=== PATIENT | male | born 1940 | race Caucasian/White ===

== ENCOUNTER 2019-12-13 09:09 | Inpatient (IN) | payer MEDICARE ==
[~2019-12-13] VITALS: Ht 177.8 cm; Wt 64.5 kg
[~2019-12-13 09:09] MED LIST: APIX5TAB PO; ASPI81TA59 PO; CYAN500T52 PO; DILT120C99 PO; DILT240C2 PO; DILT240C66 PO; DOCU-109 PO; HYDR-2765 PO; IPRA3AMP29 NEB; LEVO125T5 PO; LEVO75TA5 PO; METR45CR2 TP; MYCO250C44 PO; MYCO500T3 PO; NAPR220C4 PO; OMEG1CAP6 PO; PANT40TA77 PO; PIRF267C2 PO; PRED-220 PO; PRED5TAB PO; TAMS0.4C97 PO
[2019-12-13 09:20] VITALS: BP 100/57
[2019-12-13] MEDS ORDERED: predniSONE 5 MG TABLET PO PRN (09:45)
--- NOTE | 2019-12-13 10:26 | HP ---
ADMIT DATE: 12/13/2019 CHIEF COMPLAINT AND HISTORY OF PRESENT ILLNESS: This 79-year-old white male is well known to me from followup in the office. The patient admitted at this point in time with several days of increasing weakness, anorexia and a couple of falls. was unable to get him up and around the house safely and the patient is admitted to better figure out what the acute processes are causing his rapid decompensation. PAST MEDICAL HISTORY: Remarkable for interstitial lung disease, atrial fibrillation, benign prostatic hypertrophy, rosacea, osteoarthritis, peripheral neuropathy, hypothyroidism, early dementia, prior thoracic spine back surgery for myelopathy, tonsillectomy and vasectomy. MEDICATIONS: Brought with the patient, listed on the computer and have been addressed. ALLERGIES: He has no known drug allergies. SOCIAL HISTORY: Nonsmoker, nondrinker, does not abuse drugs. , lives at home with his . Has worked and still does a couple of days a week of trying to do work. FAMILY HISTORY: Noncontributory. REVIEW OF SYSTEMS: As mentioned above. PHYSICAL EXAMINATION: GENERAL: He is a well-developed, well-nourished white male, who appears in no acute distress. VITAL SIGNS: Stable. He is afebrile. HEAD, EYES, EARS, NOSE AND THROAT: Remarkable for some bruising about the head area. NECK: Supple without adenopathy or thyromegaly. CHEST: Clear to auscultation and percussion. HEART: Irregularly irregular with rate in the 70s. ABDOMEN: Soft, nontender, without hepatosplenomegaly or masses. EXTREMITIES: Without cyanosis, clubbing or edema. NEUROLOGICAL: Nonfocal. LABORATORY DATA: The patient just had laboratory testing in my office here a week ago, had a hemoglobin of 10.8, but slightly decreased red cell indices, and did have a history of GI bleeding. TSH was slightly elevated at 6.68. Otherwise, comprehensive metabolic panel was normal. IMPRESSION: Falls, weakness, anorexia of uncertain etiology. PLAN: The patient has been admitted. Therapy will be asked to see him. Labs will be checked, and the patient will be monitored, managed and treated appropriately. SATURNINO ARIAS MD DR: SEAN/alexa JOB#: [id number] / [id number]
[2019-12-13] MEDS: MYCOPHENOLATE MOFETIL 250 MG CAPSULE. PO SCH ×2 (10:46→21:17)
[2019-12-13] MEDS: LEVOTHYROXINE 125 MCG TABLET PO SCH (10:46)
[2019-12-13] MEDS: TAMSULOSIN 0.4 MG CAP.ER.24H. PO SCH (10:46)
[2019-12-13] MEDS: CYANOCOBALAMIN (VITAMIN B-12) 1,000 MCG TABLET. PO SCH (10:47)
--- NOTE | 2019-12-13 10:50 | RAD ---
EXAM: AP View of the chest DATE: 12/13/2019 9:35 AM INDICATION: Shortness of breath COMPARISON: 03/25/2019 FINDINGS/ IMPRESSION: Cardiac mediastinal silhouette is stable to 03/25/2019. Bilateral interstitial prominence particularly in the upper lungs and peripheral lower lungs are also grossly stable without definite superimposed lobar consolidation. Retrocardiac density may represent hiatal hernia. Trace pleural effusions or pleural thickening. No definite pneumothorax. Prominent loops of small and large bowel are seen in the upper abdomen. Electronically signed by: Sergio Vasquez MD (12/13/2019 10:47 AM) [email or web address]
[2019-12-13 11:00] VITALS: BP 110/62
[2019-12-13 12:27] LABS: BASO % 1 % (0-3); EOS % 0 % (0-3); HEMATOCRIT 36.2 % (39.0-53.0); HEMOGLOBIN 11.5 g/dL (13.0-17.5); LYMPH # 0.2 x10^3/uL (1.0-4.8); LYMPH % 8 % (24-48); MEAN CORPUSCULAR HEMOGLOBIN 24 pg (25-35); MEAN CORPUSCULAR HGB CONC 32 g/dL (31-37); MEAN CORPUSCULAR VOLUME 75 fL (79-100); MONO # 0.3 x10^3/uL (0.0-1.1); MONO % 8 % (0-9); NEUT # 2.6 x10^3/uL (1.8-7.7); NEUT % 82 % (31-73); PLATELET COUNT 108 x10^3/uL (140-400); RED BLOOD COUNT 4.85 x10^6/uL (4.30-5.70); RED CELL DISTRIBUTION WIDTH 17.6 % (11.5-14.5); WHITE BLOOD COUNT 3.1 x10^3/uL (4.0-11.0)
[2019-12-13 13:00] LABS: ALBUMIN 3.2 g/dL (3.4-5.0); ALBUMIN/GLOBULIN RATIO 0.8 (1.0-1.7); CALCIUM 8.8 mg/dL (8.5-10.1); CREATININE 0.7 mg/dL (0.7-1.3); GFR 108.5; POTASSIUM 4.5 mmol/L (3.5-5.1)
[2019-12-13 14:18] LABS: % ATYL 2 % (0-0); % BANDS 10 % (0-9); % BASOS 1 % (0-3); % LYMPHS 4 % (24-48); % MONOS 9 % (0-10); % SEGS 74 % (35-66); NUCLEATED RBC 1; PLT ESTIMATE DECREASED (ADEQUATE)
[2019-12-13 14:23] LABS: ANISOCYTOSIS SLIGHT; BIZZARE CELLS FEW; HYPOCHROMIA SLIGHT; OVALOCYTES FEW
[2019-12-13 14:49] LABS: BILIRUBIN,URINE SMALL (NEG); CLARITY,URINE CLEAR; COLOR,URINE AMBER; NITRITE,URINE NEGATIVE (NEG); PH,URINE 5.5 (<5.0-8.0); PROTEIN,URINE NEGATIVE (NEG-TRACE)
[2019-12-13 15:00] VITALS: BP 85/45
[2019-12-13 15:00] LABS: BACTERIA,URINE 0 /HPF (0-FEW); RBC,URINE 0 /HPF (0-2); SQUAMOUS EPITHELIAL CELL,UR OCC /LPF; WBC,URINE 0 /HPF (0-4)
[2019-12-13 15:45] VITALS: BP 98/56
[2019-12-13] MEDS ORDERED: IOHEXOL 300 MG/ML 100ML VIAL. PO ONE (16:00)
[2019-12-13] MEDS ORDERED: CONTRAST GIVEN. MC PRN (16:00)
[2019-12-13] MEDS ORDERED: IOHEXOL 240 MG/ML 50ML VIAL. PO ONE (16:00)
--- NOTE | 2019-12-13 18:09 | RAD ---
Exam: CT abdomen and pelvis with contrast INDICATION: Dilated bowel TECHNIQUE: Sequential axial images through the abdomen and pelvis obtained following the administration of 75 mL of Omni 300 IV contrast. Sagittal and coronal reformatted images were reconstructed from the axial data and reviewed. Comparisons: Chest x-ray same day FINDINGS: Heart size is normal. No pericardial effusion. Peripheral reticular opacities with associated cystic change is noted at the lung bases. No pleural effusion. Liver, spleen, pancreas, gallbladder and adrenals are unremarkable. Kidneys demonstrate symmetric enhancement. No perinephric inflammation or hydronephrosis. No renal or ureteral calculi are identified. Bladder is partially distended and not well evaluated. Prostate is not enlarged. Large and small bowel are unremarkable. There is mild gaseous distention of the stomach without evidence for obstruction. No free intra-abdominal air or fluid. No obstruction. Abdominal aorta has a normal course and caliber. Abdominal vasculature is patent. No enlarged intra-abdominal lymph nodes are identified. No suspicious osseous lesions or acute fractures. IMPRESSION: 1. Gas distention of the stomach without evidence of obstruction. 2. No acute process identified within the abdomen or pelvis. Exposure: One or more of the following in the visualized dose reduction techniques were utilized for this examination: 1. Automated exposure control 2. Adjustment of the MA and/or KV according to patient size 3. Use of iterative of reconstructive technique Electronically signed by: Epi Ayala MD (12/13/2019 6:06 PM) [id number]
[2019-12-13 19:00] VITALS: BP 104/77
[2019-12-13 23:00] VITALS: BP 117/63
[2019-12-14 03:00] VITALS: BP 119/74
[2019-12-14 05:16] LABS: BASO % 1 % (0-3); EOS % 1 % (0-3); HEMATOCRIT 33.4 % (39.0-53.0); HEMOGLOBIN 10.6 g/dL (13.0-17.5); LYMPH # 0.3 x10^3/uL (1.0-4.8); LYMPH % 13 % (24-48); MEAN CORPUSCULAR HEMOGLOBIN 24 pg (25-35); MEAN CORPUSCULAR HGB CONC 32 g/dL (31-37); MEAN CORPUSCULAR VOLUME 75 fL (79-100); MONO # 0.2 x10^3/uL (0.0-1.1); MONO % 10 % (0-9); NEUT # 1.7 x10^3/uL (1.8-7.7); NEUT % 75 % (31-73); PLATELET COUNT 96 x10^3/uL (140-400); RED BLOOD COUNT 4.43 x10^6/uL (4.30-5.70); WHITE BLOOD COUNT 2.2 x10^3/uL (4.0-11.0)
[2019-12-14 07:59] VITALS: BP 110/72
[2019-12-14] MEDS: MYCOPHENOLATE MOFETIL 250 MG CAPSULE. PO SCH ×2 (09:48→21:15)
[2019-12-14] MEDS: CYANOCOBALAMIN (VITAMIN B-12) 1,000 MCG TABLET. PO SCH (09:49)
[2019-12-14] MEDS: TAMSULOSIN 0.4 MG CAP.ER.24H. PO SCH (09:49)
[2019-12-14] MEDS: LEVOTHYROXINE 125 MCG TABLET PO SCH (09:49)
[2019-12-14 11:59] VITALS: BP 104/67
--- NOTE | 2019-12-14 12:25 | PDOC ---
Infectious Disease Note Vital Sign Vital Signs Vital Signs Date Time Temp Pulse Resp B/P (MAP) Pulse Ox O2 Delivery O2 Flow Rate FiO2 12/14/19 09:49 98 110/72 12/14/19 08:00 Room Air 12/14/19 07:59 97.6 20 92 97.6 Labs Lab Laboratory Tests Test 12/13/19 14:33 12/14/19 04:15 Urine Collection Type Unknown Urine Color Amy Urine Clarity Clear Urine pH 5.5 (<5.0-8.0) Urine Specific [place] >=1.030 (1.000-1.030) Urine Protein Negative mg/dL (NEG-TRACE) Urine Glucose (UA) Negative mg/dL (NEG) Urine Ketones (Stick) Trace mg/dL (NEG) Urine Blood Negative (NEG) Urine Nitrite Negative (NEG) Urine Bilirubin Small (NEG) Urine Urobilinogen Dipstick 1.0 mg/dL (0.2 mg/dL) Urine Leukocyte Esterase Negative (NEG) Urine RBC 0 /HPF (0-2) Urine WBC 0 /HPF (0-4) Urine Squamous Epithelial Cells Occ /LPF Urine Bacteria 0 /HPF (0-FEW) Urine Mucus Marked /LPF White Blood Count 2.2 x10^3/uL (4.0-11.0) Red Blood Count 4.43 x10^6/uL (4.30-5.70) Hemoglobin 10.6 g/dL (13.0-17.5) Hematocrit 33.4 % (39.0-53.0) Mean Corpuscular Volume 75 fL (79-100) Mean Corpuscular Hemoglobin 24 pg (25-35) Mean Corpuscular Hemoglobin Concent 32 g/dL (31-37) Red Cell Distribution Width 18.0 % (11.5-14.5) Platelet Count 96 x10^3/uL (140-400) Neutrophils (%) (Auto) 75 % (31-73) Lymphocytes (%) (Auto) 13 % (24-48) Monocytes (%) (Auto) 10 % (0-9) Eosinophils (%) (Auto) 1 % (0-3) Basophils (%) (Auto) 1 % (0-3) Neutrophils # (Auto) 1.7 x10^3/uL (1.8-7.7) Lymphocytes # (Auto) 0.3 x10^3/uL (1.0-4.8) Monocytes # (Auto) 0.2 x10^3/uL (0.0-1.1) Eosinophils # (Auto) 0.0 x10^3/uL (0.0-0.7) Basophils # (Auto) 0.0 x10^3/uL (0.0-0.2) Objective Assessment Bandemia Pancytopenia Conjunctivitis s/p fall Peripheral neuropathy COPD A-fib Plan Plan of Care Awaiting hem/onc eval Full consult to follow Thank you Sees Pulmonary at Kushal Mccall MD last seen 09/11/2019 for ILD chronic hypersensitivity pneumonitis on Cellcept Likely Cellcept causing pancytopenia Dose have some conjunctivitis so will dose Tobra gtts d/w pharmacy D/w nursing Attending Co-Sign Attending Co-Sign The patient was seen and interviewed as well as examined at the bedside. The chart was reviewed. The case was discussed. Agree with the plan of care. HIMANSHU RAY APRN Dec 14, 2019 12:25 TODD MARTINEZ MD Dec 14, 2019 16:04
--- NOTE | 2019-12-14 15:04 | PDOC ---
Provider Note Provider Note afeb, weak but alert- lab shows leukthrombocytopenia from 04/12, ? etiology - is on cellcept for ? dx - will follow daily cbc , heme consult pending, will likely need marrow exam for poss MDS DARION BATISTA MD Dec 14, 2019 15:04
[2019-12-14 15:59] VITALS: BP 104/63
[2019-12-14] MEDS ORDERED: IPRATRPIUM/ALBUTEROL 0.5/2.5MG 3 ML NEBU. NEB SCH (16:00)
[2019-12-14] MEDS: PANTOPRAZOLE 40 MG TABLET.DR. PO SCH (16:25)
[2019-12-14] MEDS: POTASSIUM CL 20MEQ D5-0.45NACL 1,000 ML IV SCH (16:27)
[2019-12-14] MEDS: TOBRAMYCIN 0.3% OPHTH SOLUTION 5ML BOTTLE. OU SCH ×2 (16:35→21:15)
--- NOTE | 2019-12-14 17:39 | CONS ---
DATE OF CONSULTATION: 12/14/2019 Gume Shaikh, nursing practitioner, dictating for Dr. Todd Martinez, Infectious Disease. REFERRING PHYSICIAN: Dr. Nino Chan. REASON FOR CONSULTATION: Bandemia. HISTORY OF PRESENT ILLNESS: The patient is a pleasant 79-year-old male who was admitted for increased weakness, anorexia and falls. He was found to have Bandemia and pancytopenia. A chest x-ray and CT abdomen and pelvis showed no acute processes. The patient explains for over the last 6 weeks, he has had worsening neuropathy in his feet and lower legs and as such, has been hard to get around. He lost his balance and fallen. He says he does not feel sick. He denies fevers, chills or body aches. He denies shortness of air, cough or chest discomfort. He has a history of pancytopenia last year (here). He is followed by Dr. Mccall, Pulmonology at , for treatment of interstitial lung disease/chronic hypersensitivity pneumonitis. He is on treatment with CellCept. His last visit was 09/11/2019. PAST MEDICAL HISTORY: Interstitial lung disease; chronic hypersensitivity pneumonitis on CellCept followed by Pulmonology at ; early dementia, peripheral neuropathy, atrial fibrillation, chronic obstructive pulmonary disease, benign prostate hyperplasia, osteoarthritis, hypothyroidism, history of pancytopenia, rosacea, history of skin cancer, history of atrial fibrillation and also history of alcohol abuse. PAST SURGICAL HISTORY: Thoracic spine back surgery for myelopathy, colonoscopy, tonsillectomy, vasectomy. SOCIAL HISTORY: The patient is and lives at home. He is a nonsmoker. ALLERGIES: No known drug allergies. MEDICATIONS: Vitamin B12, diltiazem, DuoNeb, Synthroid, CellCept, Protonix, prednisone, Flomax. REVIEW OF SYSTEMS: Per HPI, otherwise all other review of systems are negative. PHYSICAL EXAMINATION: VITAL SIGNS: Temperature is 97.6, blood pressure 110/72, heart rate 98, respiratory rate 20, pulse oximetry is 92% on room air. GENERAL: The patient is propped up in bed, alert, in no apparent distress. HEENT: Pupils equally round, reactive. He has some right conjunctiva redness. Oropharynx pink, moist. No lesions. NECK: Supple. LUNGS: Clear to auscultation. HEART: S1 and S2. ABDOMEN: Soft, nontender with bowel sounds present. EXTREMITIES: No gross edema or cyanosis. SKIN: Warm to touch. He has some yeast in the groin areas. NEUROLOGIC: Alert and answering questions appropriately, somewhat of a poor historian. LABORATORY DATA: Today's WBC 2.2 from 3.1 on admission, hemoglobin 10.6, platelets 96,000. Sodium 137, potassium 4.5, creatinine 0.7, BUN 7, glucose 78, total bilirubin 1.0, AST 33, ALT 13, albumin 3.2. Urinalysis unremarkable for infection. Bands 10%, seg 74%. IMAGING: Abdominal/pelvic CT and chest x-ray per HPI. IMPRESSION: 1. Bandemia. 2. Pancytopenia. 3. Conjunctivitis. 4. Status post fall. 5. Peripheral neuropathy. 6. Interstitial lung disease/chronic hypersensitivity pneumonitis, on CellCept. 7. Chronic obstructive pulmonary disease. 8. Atrial fibrillation. 9. Yeast in the groin area PLAN: 1. We will dose tobramycin optic for conjunctivitis. 2. CellCept, likely causing pancytopenia. Hematology has been consulted for evaluation. 3. Maintain fall precautions. 4. Labs have been ordered for the morning. 5. Supportive care. 6. Also we will add topical nystatin to groin area. Thank you, Dr. Chan, for asking us to participate in this patient's care. Should you have further questions or concerns, please call. The patient seen and examined and plan of care implemented by Dr. Todd Martinez. Discussed with nursing. TODD MARTINEZ MD DR: MONSE/alexa JOB#: [id number] / [id number]
[2019-12-14 19:00] VITALS: BP 109/68
[2019-12-14] MEDS ORDERED: NYSTATIN TOPICAL POWDER 15GM BOTTLE. TP SCH (21:00)
[2019-12-14] MEDS: NYSTATIN TOPICAL POWDER 15GM BOTTLE. TP SCH (21:15)
[2019-12-14 23:26] VITALS: BP 106/68
[2019-12-15] MEDS: TOBRAMYCIN 0.3% OPHTH SOLUTION 5ML BOTTLE. OU SCH ×7 (00:21→23:55)
[2019-12-15] MEDS: POTASSIUM CL 20MEQ D5-0.45NACL 1,000 ML IV SCH ×2 (02:09→10:48)
[2019-12-15 02:41] VITALS: BP 113/69
[2019-12-15 05:17] LABS: BASO % 1 % (0-3); EOS % 0 % (0-3); HEMATOCRIT 32.3 % (39.0-53.0); HEMOGLOBIN 10.1 g/dL (13.0-17.5); LYMPH # 0.3 x10^3/uL (1.0-4.8); LYMPH % 13 % (24-48); MEAN CORPUSCULAR HEMOGLOBIN 24 pg (25-35); MEAN CORPUSCULAR HGB CONC 31 g/dL (31-37); MEAN CORPUSCULAR VOLUME 76 fL (79-100); MONO # 0.2 x10^3/uL (0.0-1.1); MONO % 10 % (0-9); NEUT # 1.9 x10^3/uL (1.8-7.7); NEUT % 77 % (31-73); PLATELET COUNT 91 x10^3/uL (140-400); RED BLOOD COUNT 4.26 x10^6/uL (4.30-5.70); RED CELL DISTRIBUTION WIDTH 17.8 % (11.5-14.5); WHITE BLOOD COUNT 2.4 x10^3/uL (4.0-11.0)
[2019-12-15 07:00] VITALS: BP 119/69
[2019-12-15] MEDS: PANTOPRAZOLE 40 MG TABLET.DR. PO SCH (10:33)
[2019-12-15] MEDS: MYCOPHENOLATE MOFETIL 250 MG CAPSULE. PO SCH (10:33)
[2019-12-15] MEDS: LEVOTHYROXINE 125 MCG TABLET PO SCH (10:33)
[2019-12-15] MEDS: TAMSULOSIN 0.4 MG CAP.ER.24H. PO SCH (10:33)
[2019-12-15] MEDS: CYANOCOBALAMIN (VITAMIN B-12) 1,000 MCG TABLET. PO SCH (10:34)
[2019-12-15] MEDS: NYSTATIN TOPICAL POWDER 15GM BOTTLE. TP SCH ×2 (10:35→21:25)
[2019-12-15 11:00] VITALS: BP 153/75
--- NOTE | 2019-12-15 12:58 | PDOC ---
Provider Note Provider Note sleeping, vss, no new findings, good output- cbc same, will dc cellsept as most likely cause for pancytopenia, follow for recovery- dc iv fluid now al;so DARION BATISTA MD Dec 15, 2019 12:58
[2019-12-15 15:00] VITALS: BP 107/73
--- NOTE | 2019-12-15 16:02 | PDOC ---
Infectious Disease Note Subjective Subjective Doing fine Denies SOA/cough/F/C/aches Says eyes feel fine, no itching or drainage Appetite good Vital Sign Vital Signs Vital Signs Date Time Temp Pulse Resp B/P (MAP) Pulse Ox O2 Delivery O2 Flow Rate FiO2 12/15/19 11:00 97.3 68 20 153/75 (101) 96 Room Air 97.3 Physical Exam PHYSICAL EXAM GENERAL: Propped up in bed, alert, in no apparent distress. HEENT: Pupils equally round, reactive. Some right conjunctiva redness. Oropharynx pink, moist. No lesions. NECK: Supple. LUNGS: Clear to auscultation. HEART: S1 and S2. ABDOMEN: Soft, nontender with bowel sounds present. : Yeast groin area EXTREMITIES: No gross edema or cyanosis. SKIN: Warm to touch. He has some yeast in the groin areas. NEUROLOGIC: Alert and answering questions appropriately, somewhat of a poor historian. Labs Lab Laboratory Tests Test 12/15/19 04:20 White Blood Count 2.4 x10^3/uL (4.0-11.0) Red Blood Count 4.26 x10^6/uL (4.30-5.70) Hemoglobin 10.1 g/dL (13.0-17.5) Hematocrit 32.3 % (39.0-53.0) Mean Corpuscular Volume 76 fL (79-100) Mean Corpuscular Hemoglobin 24 pg (25-35) Mean Corpuscular Hemoglobin Concent 31 g/dL (31-37) Red Cell Distribution Width 17.8 % (11.5-14.5) Platelet Count 91 x10^3/uL (140-400) Neutrophils (%) (Auto) 77 % (31-73) Lymphocytes (%) (Auto) 13 % (24-48) Monocytes (%) (Auto) 10 % (0-9) Eosinophils (%) (Auto) 0 % (0-3) Basophils (%) (Auto) 1 % (0-3) Neutrophils # (Auto) 1.9 x10^3/uL (1.8-7.7) Lymphocytes # (Auto) 0.3 x10^3/uL (1.0-4.8) Monocytes # (Auto) 0.2 x10^3/uL (0.0-1.1) Eosinophils # (Auto) 0.0 x10^3/uL (0.0-0.7) Basophils # (Auto) 0.0 x10^3/uL (0.0-0.2) Objective Assessment Bandemia Pancytopenia, likely related to Cellcept. now d/c ILD/chronic hypersensitivity pneumonitis on Cellcept. -Followed by Dr. Mccall pulm at . Last seen 08/2019 Conjunctivitis Yeast groin area s/p fall Peripheral neuropathy COPD A-fib Plan Plan of Care Awaiting hem/onc eval Continue Tobra gtts Continue topical Nystatin to affected area In a chair and eyes are better. Looks well WBC some better yeast better Eyes are better and feeling baseline Cont eye drops for 5 days ID to sign off Attending Co-Sign Attending Co-Sign The patient was seen and interviewed as well as examined at the bedside. The chart was reviewed. The case was discussed. Agree with the plan of care. HIMANSHU RAY APRN Dec 15, 2019 16:02 TODD MARTINEZ MD Dec 15, 2019 16:09
--- NOTE | 2019-12-15 19:43 | NUR ---
The "skin tear" reported to me earlier by a RACK ROOM WORKER who covered it with foam, was a scab that the pt "picked" off and was bleeding. The scab has now rescabbed and was left WHEEL LACER [employer] TRUER after picture taken. Pt has dozens of areas all over where he picked scabs off and bleeds.
[2019-12-15 19:59] VITALS: BP 132/66
[2019-12-15 23:42] VITALS: BP 107/55
[2019-12-16 03:15] VITALS: BP 128/71
[2019-12-16] MEDS: TOBRAMYCIN 0.3% OPHTH SOLUTION 5ML BOTTLE. OU SCH ×6 (04:00→23:50)
[2019-12-16 04:19] LABS: BASO % 1 % (0-3); EOS % 0 % (0-3); HEMATOCRIT 32.9 % (39.0-53.0); HEMOGLOBIN 10.5 g/dL (13.0-17.5); LYMPH # 0.3 x10^3/uL (1.0-4.8); LYMPH % 9 % (24-48); MEAN CORPUSCULAR HEMOGLOBIN 24 pg (25-35); MEAN CORPUSCULAR HGB CONC 32 g/dL (31-37); MEAN CORPUSCULAR VOLUME 75 fL (79-100); MONO # 0.2 x10^3/uL (0.0-1.1); MONO % 8 % (0-9); NEUT # 2.5 x10^3/uL (1.8-7.7); NEUT % 82 % (31-73); PLATELET COUNT 100 x10^3/uL (140-400); RED BLOOD COUNT 4.39 x10^6/uL (4.30-5.70); RED CELL DISTRIBUTION WIDTH 18.2 % (11.5-14.5)
[2019-12-16 07:00] VITALS: BP 97/58
--- NOTE | 2019-12-16 08:01 | PDOC ---
GENERAL General: vss and afebrile. blood counts rebounding some off cellcept. underlying pulmonary fibrosis big problem also and will need to balance the two. chest fine crackles, heart irregular, abdomen benign. will ask for snu eval and continue same. VITAL SIGNS/I&O Vital Signs/I&O: Vital Signs Date Time Temp Pulse Resp B/P (MAP) Pulse Ox O2 Delivery O2 Flow Rate FiO2 12/16/19 03:15 98.0 89 18 128/71 (90) 91 Room Air 98.0 I & O 12/15/19 12/15/19 12/16/19 15:00 23:00 07:00 Intake Total 150 ml Output Total 110 ml 500 ml Balance -110 ml -350 ml ALLERGIES Allergies: Allergies Coded Allergies Type Severity Reaction Last Updated Verified No Known Drug Allergies 04/01/19 No LAB Lab: Laboratory Tests Test 12/16/19 03:35 White Blood Count 3.0 x10^3/uL (4.0-11.0) L Red Blood Count 4.39 x10^6/uL (4.30-5.70) Hemoglobin 10.5 g/dL (13.0-17.5) L Hematocrit 32.9 % (39.0-53.0) L Mean Corpuscular Volume 75 fL (79-100) L Mean Corpuscular Hemoglobin 24 pg (25-35) L Mean Corpuscular Hemoglobin Concent 32 g/dL (31-37) Red Cell Distribution Width 18.2 % (11.5-14.5) H Platelet Count 100 x10^3/uL (140-400) L Neutrophils (%) (Auto) 82 % (31-73) H Lymphocytes (%) (Auto) 9 % (24-48) L Monocytes (%) (Auto) 8 % (0-9) Eosinophils (%) (Auto) 0 % (0-3) Basophils (%) (Auto) 1 % (0-3) Neutrophils # (Auto) 2.5 x10^3/uL (1.8-7.7) Lymphocytes # (Auto) 0.3 x10^3/uL (1.0-4.8) L Monocytes # (Auto) 0.2 x10^3/uL (0.0-1.1) Eosinophils # (Auto) 0.0 x10^3/uL (0.0-0.7) Basophils # (Auto) 0.0 x10^3/uL (0.0-0.2) Laboratory Tests 12/16/19 03:35 SATURNINO ARIAS MD Dec 16, 2019 08:00
[2019-12-16] MEDS: CYANOCOBALAMIN (VITAMIN B-12) 1,000 MCG TABLET. PO SCH (08:13)
[2019-12-16] MEDS: LEVOTHYROXINE 125 MCG TABLET PO SCH (08:14)
[2019-12-16] MEDS: PANTOPRAZOLE 40 MG TABLET.DR. PO SCH (08:14)
[2019-12-16] MEDS: TAMSULOSIN 0.4 MG CAP.ER.24H. PO SCH (08:14)
[2019-12-16] MEDS: NYSTATIN TOPICAL POWDER 15GM BOTTLE. TP SCH ×2 (08:15→20:42)
--- NOTE | 2019-12-16 09:43 | PDOC2 ---
CONSULT Date of Consult Date of Consult DATE: 12/16/19 TIME: 09:37 HEMATOLOGY ONCOLOGY CONSULTATION REQUESTING PHYSICIAN: Primary care REASON FOR CONSULTATION: pancytopenia HISTORY OF PRESENT ILLNESS: The patient is an 79-year-old man with pancytopenia, he has a history of interstitial lung disease, and shortness of breath which is chronic, moderate, worsened over time, ongoing about 6 months, and he was recently started on CellCept for his critical care clinical nurse specialist to [facility] though he was admitted and noted to have associated pancytopenia, the CellCept has been held and his blood counts are improving. PAST MEDICAL HISTORY: Osteoarthritis Interstitial lung disease Atrial fibrillation BPH Rosacea Peripheral neuropathy Hypothyroid Early dementia Colon polyps SURGERIES: Thoracic spine surgery for myelopathy Tonsillectomy Vasectomy ALL: no Known drug allergies MEDS: see attached list FAMILY HISTORY: Dementia, breast cancer SOCIAL HISTORY: , lives at home with his , no children, no current tobacco, a glass of wine a couple times a week REVIEW OF SYSTEMS: A 10-point review of system was positive for shortness of breath which is usual and chronic, since His Face, Rosacea, a Groin Rash, He Was Given a Cream for This Yesterday, Weakness, and Slight Memory Loss otherwise rest of the 10 pt system review is negative. PHYSICAL EXAMINATION: GENERAL APPEARANCE: thin, elderly, resting in bed, in NAD VITAL SIGNS: vitals reviewed HEAD: Atraumatic, normocephalic. NECK: Supple. nl ROM. no LAD. CHEST: Bilaterally symmetrical, on RA w/o resp distress, though slightly increased work of breathing ABDOMEN: Soft, nontender. nondist. CENTRAL NERVOUS SYSTEM: No focal deficits. A&Ox3 SKIN: Has rosacea on his face and some scabs as well. EXT: no c/c/e PSYCHOLOGIC: pleasant mood and affect LABS: White count 3.0 up from 2.2, hemoglobin 10.5 up from 10.1, platelets 100 up from 91 RADS: Abdominal pelvic CT showed gas, no obstruction Chest x-ray stable, possible hiatal hernia? Case discussed w/ pt, [facility] including labs and [facility], please see note for summary details. A/P: He is an 79-year-old man with interstitial lung disease on CellCept that was stopped here due to pancytopenia, cytopenias are improving, I do suspect they are related to the CellCept, he did not note much improvement for his lung disease and states this was started a couple weeks ago, I will notify his critical care clinical nurse specialist that it has been withheld and can be restarted as needed but will need to be closely monitored through pulmonary if restarted. As his counts are improving I do not think bone marrow biopsy is necessary at this time, but is certain welcome to follow-up with us should they not recover. Interstitial lung disease: Follow-up pulmonary [facility] Pancytopenia: Improving off CellCept, continue to hold this Weakness: He tells me he may need rehabilitation for a few days Disposition: Per others, fine for discharge from our standpoint Thank you kindly for this consultation and please do not hesitate to call with any further questions. Social History ALCOHOL: other Drugs: None Current Medications Current Medications Current Medications Diltiazem HCl (Cardizem 24hr Cd) 120 mg DAILY PO Last administered on 12/15/19at 10:34; Start 12/13/19 at 11:00 Levothyroxine Sodium (Synthroid) 125 mcg DAILY07 PO Last administered on 12/16/19at 08:14; Start 12/13/19 at 11:00 Prednisone (Prednisone) 5 mg PRN DAILY PRN PO arthritis; Start 12/13/19 at 09:45; Stop 12/14/19 at 14:34; Status DC Tamsulosin HCl (Flomax) 0.4 mg DAILY PO Last administered on 12/16/19at 08:14; Start 12/13/19 at 11:00 Cyanocobalamin (Vitamin B-12) 500 mcg DAILY PO Last administered on 12/16/19at 08:13; Start 12/13/19 at 11:00 Mycophenolate Mofetil (Cellcept) 1,000 mg BID PO Last administered on 12/15/19at 10:33; Start 12/13/19 at 11:00; Stop 12/15/19 at 12:56; Status DC Iohexol (Omnipaque 240 Mg/ml) 30 ml 1X ONCE PO Last administered on 12/13/19at 17:25; Start 12/13/19 at 16:00; Stop 12/13/19 at 16:01; Status DC Iohexol (Omnipaque 300 Mg/ml) 75 ml 1X ONCE PO Last administered on 12/13/19at 17:25; Start 12/13/19 at 16:00; Stop 12/13/19 at 16:01; Status DC Info (CONTRAST GIVEN -- Rx MONITORING) 1 each PRN DAILY PRN MC SEE COMMENTS; Start 12/13/19 at 16:00; Stop 12/15/19 at 15:59; Status DC Albuterol/ Ipratropium (Duoneb) 3 ml RTQID NEB Last administered on 12/14/19at 15:01; Start 12/14/19 at 16:00; Stop 12/14/19 at 15:14; Status DC Pantoprazole Sodium (Protonix) 40 mg DAILYAC PO Last administered on 12/16/19at 08:14; Start 12/14/19 at 16:30 Potassium Chloride/Dextrose/ Sod Cl 1,000 ml @ 100 mls/hr Q10H IV Last administered on 12/15/19at 10:48; Start 12/14/19 at 14:15; Stop 12/15/19 at 12:56; Status DC Tobramycin Sulfate (Tobrex Ophth Soln) 2 drop Q4HRS OU Last administered on 12/16/19at 08:14; Start 12/14/19 at 16:15 Nystatin (Nystop) 1 felipe BID TP ; Start 12/14/19 at 21:00; Status UNV Nystatin (Nystop) 1 felipe BID TP Last administered on 12/16/19at 08:15; Start 12/14/19 at 21:00 Active Scripts Active Pantoprazole Sodium (Pantoprazole Sodium) 40 Mg Tablet.dr 40 Mg PO DAILYAC 30 Days Flomax (Tamsulosin Hcl) 0.4 Mg Cap.er.24h 0.4 Mg PO DAILY 30 Days Duoneb 0.5-3(2.5) Mg/3 Ml (Albuterol/Ipratropium) 3 Ml Ampul.neb 3 Ml NEB RTQID 30 Days Reported Prednisone 5 Mg Tablet 5 Mg PO PRN DAILY PRN Mycophenolate Mofetil 500 Mg Tablet 2 Tab PO BID Diltiazem 24HR Cd (Diltiazem Hcl) 120 Mg Cap.er.24h 1 Cap PO DAILY Levothyroxine Sodium 125 Mcg Tablet 1 Tab PO DAILY Vitamin B-12 (Cyanocobalamin (Vitamin B-12)) 500 Mcg Tablet 500 Mcg PO DAILY Allergies Allergies: Coded Allergies: No Known Drug Allergies (Unverified , 04/01/19) Vitals VITALS Vital Signs Date Time Temp Pulse Resp B/P (MAP) Pulse Ox O2 Delivery O2 Flow Rate FiO2 12/16/19 08:14 97/58 12/16/19 08:00 Room Air 12/16/19 07:00 97.3 71 22 100 97.3 Labs Labs Laboratory Tests Test 12/15/19 04:20 12/16/19 03:35 White Blood Count 2.4 x10^3/uL (4.0-11.0) 3.0 x10^3/uL (4.0-11.0) Red Blood Count 4.26 x10^6/uL (4.30-5.70) 4.39 x10^6/uL (4.30-5.70) Hemoglobin 10.1 g/dL (13.0-17.5) 10.5 g/dL (13.0-17.5) Hematocrit 32.3 % (39.0-53.0) 32.9 % (39.0-53.0) Mean Corpuscular Volume 76 fL (79-100) 75 fL (79-100) Mean Corpuscular Hemoglobin 24 pg (25-35) 24 pg (25-35) Mean Corpuscular Hemoglobin Concent 31 g/dL (31-37) 32 g/dL (31-37) Red Cell Distribution Width 17.8 % (11.5-14.5) 18.2 % (11.5-14.5) Platelet Count 91 x10^3/uL (140-400) 100 x10^3/uL (140-400) Neutrophils (%) (Auto) 77 % (31-73) 82 % (31-73) Lymphocytes (%) (Auto) 13 % (24-48) 9 % (24-48) Monocytes (%) (Auto) 10 % (0-9) 8 % (0-9) Eosinophils (%) (Auto) 0 % (0-3) 0 % (0-3) Basophils (%) (Auto) 1 % (0-3) 1 % (0-3) Neutrophils # (Auto) 1.9 x10^3/uL (1.8-7.7) 2.5 x10^3/uL (1.8-7.7) Lymphocytes # (Auto) 0.3 x10^3/uL (1.0-4.8) 0.3 x10^3/uL (1.0-4.8) Monocytes # (Auto) 0.2 x10^3/uL (0.0-1.1) 0.2 x10^3/uL (0.0-1.1) Eosinophils # (Auto) 0.0 x10^3/uL (0.0-0.7) 0.0 x10^3/uL (0.0-0.7) Basophils # (Auto) 0.0 x10^3/uL (0.0-0.2) 0.0 x10^3/uL (0.0-0.2) Laboratory Tests Test 12/16/19 03:35 White Blood Count 3.0 x10^3/uL (4.0-11.0) Red Blood Count 4.39 x10^6/uL (4.30-5.70) Hemoglobin 10.5 g/dL (13.0-17.5) Hematocrit 32.9 % (39.0-53.0) Mean Corpuscular Volume 75 fL (79-100) Mean Corpuscular Hemoglobin 24 pg (25-35) Mean Corpuscular Hemoglobin Concent 32 g/dL (31-37) Red Cell Distribution Width 18.2 % (11.5-14.5) Platelet Count 100 x10^3/uL (140-400) Neutrophils (%) (Auto) 82 % (31-73) Lymphocytes (%) (Auto) 9 % (24-48) Monocytes (%) (Auto) 8 % (0-9) Eosinophils (%) (Auto) 0 % (0-3) Basophils (%) (Auto) 1 % (0-3) Neutrophils # (Auto) 2.5 x10^3/uL (1.8-7.7) Lymphocytes # (Auto) 0.3 x10^3/uL (1.0-4.8) Monocytes # (Auto) 0.2 x10^3/uL (0.0-1.1) Eosinophils # (Auto) 0.0 x10^3/uL (0.0-0.7) Basophils # (Auto) 0.0 x10^3/uL (0.0-0.2) TAMARA LALA MD Dec 16, 2019 09:43
[2019-12-16 11:00] VITALS: BP 122/74
--- NOTE | 2019-12-16 12:45 | NUR ---
SW following. Discussed with RN, pt from home with . PT recommending SNU and home health, recommending home health if spouse feels she can take care of pt at home due to pt's high risk of catching Covid-19 at a facility with pulmonary problems. GODFREY spoke with pt's , Margarita ([phone]), Margarita agrees with concern of pt going to a facility with current situation and would prefer for pt to come home with home health. Margarita reported she is having to network cabler now due to [facility] lock downs, and feels with home health she can manage pt at home. Pt stays on one floor and does not have to manage any stairs at this time. Margarita would like same home health agency pt had when discharged from [facility], gave permission for SW to contact [facility] to determine agency. [facility] advised pt was discharged with [facility]. SW to fax referral to [facility], awaiting anticipated discharge date, as well as home health orders. RN notified.
[2019-12-16 15:00] VITALS: BP 123/66
[2019-12-16 19:00] VITALS: BP 136/81
[2019-12-16 23:00] VITALS: BP 114/73
[2019-12-17 03:00] VITALS: BP 118/72
[2019-12-17] MEDS: TOBRAMYCIN 0.3% OPHTH SOLUTION 5ML BOTTLE. OU SCH ×3 (04:02→12:00)
[2019-12-17 05:23] LABS: BASO % 1 % (0-3); EOS % 0 % (0-3); HEMATOCRIT 34.9 % (39.0-53.0); LYMPH # 0.4 x10^3/uL (1.0-4.8); LYMPH % 13 % (24-48); MEAN CORPUSCULAR HEMOGLOBIN 24 pg (25-35); MEAN CORPUSCULAR HGB CONC 32 g/dL (31-37); MEAN CORPUSCULAR VOLUME 75 fL (79-100); MONO # 0.3 x10^3/uL (0.0-1.1); MONO % 10 % (0-9); NEUT # 2.5 x10^3/uL (1.8-7.7); NEUT % 76 % (31-73); PLATELET COUNT 100 x10^3/uL (140-400); RED BLOOD COUNT 4.65 x10^6/uL (4.30-5.70); RED CELL DISTRIBUTION WIDTH 17.9 % (11.5-14.5); WHITE BLOOD COUNT 3.3 x10^3/uL (4.0-11.0)
[2019-12-17] MEDS: PANTOPRAZOLE 40 MG TABLET.DR. PO SCH (06:06)
[2019-12-17] MEDS: LEVOTHYROXINE 125 MCG TABLET PO SCH (06:06)
[2019-12-17 07:00] VITALS: BP 106/61
[2019-12-17] MEDS ORDERED: TOBR5DRO6 OU (08:05)
--- NOTE | 2019-12-17 08:07 | SNU/HH DC ---
DISCHARGE WITH HOME HEALTH DISCHARGE INFORMATION: Discharge Date: Dec 17, 2019 Condition on Discharge: Stable CODE STATUS: Code Status: Full HOME HEALTH: Face to Face: I certify this patient is under my care and that I, or a nurse practitioner or grayson willett's assistant news director working with me, had a face to face encounter that meets the physician face to face encounter requirements with this patient on [12-17-19]. Medical Complications: Dementia, Falls Mcfp For: Assess & Educate Safety, Assess/Skilled Observatio RN For Eval/Treatment: Yes Physical Therapy For: Evalulation/Treatment Occupational Therapy For: Evaluation/Treatment Pt Meets Homebound Status: Poor coordination w/ amb., Unsteady balance w/ amb,, Extreme weakness w/ amb. POST DISCHARGE ORDERS: Activity Instructions for Disc: Activity as tolerated DIET AFTER DISCHARGE: Regular Wound/Incision Care: Ice to area for comfort CHECKS AFTER DISCHARGE: Checks after discharge: Check blood press - daily TREATMENT/EQUIPMENT ORDERS: Adaptive Equipment Issued: None CERTIFICATION STATEMENT: Certification Statement: Certification Statement: Based on the above finding, I certify that this patient is confined to the home and needs intermittent penitentiary care, physical therapy and/or speech therapy, or continues to need occupational therapy.~ This patient is under my care, and I have initiated the establishment of the plan of care.~ This patient will be followed by myself or a community physician who will periodically review the plan of care. Home Meds Active Scripts Tobramycin (TOBRAMYCIN) 5 Ml Drops, 2 DROP OU Q4HRS for conjunctivitis for 7 Days, #1 DROP Prov:SATURNINO ARIAS MD 12/17/19 Pantoprazole Sodium (PANTOPRAZOLE SODIUM ) 40 Mg Tablet.dr, 40 MG PO DAILYAC for gi bleed for 30 Days, #30 TAB.SR Prov:SATURNINO ARIAS MD 04/02/19 Tamsulosin Hcl (FLOMAX) 0.4 Mg Cap.er.24h, 0.4 MG PO DAILY for bph for 30 Days, #30 CAP.SR Prov:SATURNINO ARIAS MD 04/02/19 Ipratropium/Albuterol Sulfate (DUONEB 0.5-3(2.5) MG/3 ML) 3 Ml Ampul.neb, 3 ML NEB RTQID for shortness of breath for 30 Days, #120 EACH Prov:SATURNINO ARIAS MD 04/02/19 Reported Medications Prednisone (PREDNISONE) 5 Mg Tablet, 5 MG PO PRN DAILY PRN for arthritis, TAB 03/25/19 Diltiazem Hcl (DILTIAZEM 24HR CD) 120 Mg Cap.er.24h, 1 CAP PO DAILY for HR, #90 CAP 1 Refill 03/25/19 Levothyroxine Sodium (LEVOTHYROXINE SODIUM) 125 Mcg Tablet, 1 TAB PO DAILY for hypothyroidism, #30 TAB 5 Refills 03/25/19 Cyanocobalamin (Vitamin B-12) (VITAMIN B-12) 500 Mcg Tablet, 500 MCG PO DAILY 03/09/16 Discontinued Reported Medications Mycophenolate Mofetil (MYCOPHENOLATE MOFETIL) 500 Mg Tablet, 2 TAB PO BID for autoimmune, TAB 03/25/19 SATURNINO ARIAS MD Dec 17, 2019 08:07
[2019-12-17] MEDS: CYANOCOBALAMIN (VITAMIN B-12) 1,000 MCG TABLET. PO SCH (09:29)
[2019-12-17] MEDS: TAMSULOSIN 0.4 MG CAP.ER.24H. PO SCH (09:29)
--- NOTE | 2019-12-17 09:29 | NUR ---
GODFREY following. Discussed with RN, pt discharging home with home health today. GODFREY faxed referral to [facility], awaiting acceptance decision. Pt's will collect pt around 1300 today, knows to contact nurses station to advise she has arrived. Addendum: 12/17/19 at 1144 by HARDY DONAHUE [facility] has accepted pt and will see him tomorrow (12/18/2019) in his home. RN notified.
[2019-12-17] MEDS: NYSTATIN TOPICAL POWDER 15GM BOTTLE. TP SCH (09:30)
[2019-12-17 11:00] VITALS: BP 97/53
--- NOTE | 2019-12-17 16:11 | NUR ---
Discharge Note: AGNIESZKA HART Discharge instructions and discharge home medications reviewed with Spouse and a copy given. All questions have been answered and understanding verbalized. The following instructions and handouts were given: Weakness Discontinued lines and drains: Peripheral IV intact. Patient discharged to Home w/services with Spouse via Wheelchair walked off unit by RN. Patient did request a walker before discharge, spoke with patient Margarita she stated that they did have a walker and it had walker in the car.
== END 2019-12-17 13:10 | disposition home health service (06) | DRG 809 ==
LOC: 4 NORTH 09:09
PROVIDERS: ADMIT Family Medicine; ATTEND Family Medicine
DX: D61.811 Other drug-induced pancytopenia (principal); J67.9 Hypersensitivity pneumonitis due to unspecified organic dust; I48.91 Unspecified atrial fibrillation; N40.0 Benign prostatic hyperplasia without lower urinary tract symptoms; E03.9 Hypothyroidism, unspecified; F03.90 Unspecified dementia, unspecified severity, without behavioral disturbance, psychotic disturbance, mood disturbance, and anxiety; J44.9 Chronic obstructive pulmonary disease, unspecified; B37.2 Candidiasis of skin and nail; G62.9 Polyneuropathy, unspecified; D72.825 Bandemia; H10.9 Unspecified conjunctivitis; Z85.828 Personal history of other malignant neoplasm of skin; Z87.19 Personal history of other diseases of the digestive system; Z80.3 Family history of malignant neoplasm of breast; T45.1X5A Adverse effect of antineoplastic and immunosuppressive drugs, initial encounter
CPT/HCPCS: 36415; 71045; 74177; 80053; 81001; 85007; 85025; 94640; J3480; J7517; Q9966; Q9967; 97116; 97530; 97535; G0378